=== PATIENT | male | born 1985 | race Caucasian/White ===

== ENCOUNTER 2020-10-31 21:58 | Emergency (ER) | payer BC ==
[~2020-10-31] VITALS: Ht 200.7 cm; Wt 153.3 kg
[2020-10-31] MEDS ORDERED: NORCO 10-325 T1 EACH PO (23:32)
[2020-10-31 23:47] VITALS: BP 150/83
== END 2020-10-31 23:48 | disposition home or self-care (01) ==
LOC: ER 21:58
DX: S80.12XA Contusion of left lower leg, initial encounter (principal); Z88.0 Allergy status to penicillin; W22.8XXA Striking against or struck by other objects, initial encounter; Y93.89 Activity, other specified; Y92.89 Other specified places as the place of occurrence of the external cause; Y99.8 Other external cause status